=== PATIENT | male | born 2000 | race Hispanic/Latino ===

== ENCOUNTER 2019-06-29 14:22 | Emergency (ER) | payer OTHER, SELFPAY ==
[2019-06-29 14:43] VITALS: BP 148/95; PULSE 108; RESP 16; TEMP 37.8; O2SAT 100
--- NOTE | 2019-06-29 15:06 | ED.URI ---
HPI - URI/Sore Throat General Chief Complaint: Upper Respiratory Infection Stated Complaint: sore throat History of Present Illness HPI Narrative: This is a 18-year-old that comes in complaining of having a slight fever since he is having a sore throat with ear pain since he started taking his allergy medicine today he is really feeling horrible with head pressure and headache Related Data Home Medications Medication Instructions Recorded Confirmed cetirizine [Zyrtec] 10 mg PO DAILY 06/29/19 06/29/19 Allergies Allergy/AdvReac Type Severity Reaction Status Date / Time No Known Allergies Allergy Verified 06/29/19 14:34 Review of Systems Review of Systems: Narrative: CONSTITUTIONAL: Denies fever, chills, or sweats. EYES: Denies visual changes, redness, or discharge. ENT: Reports rhinorrhea, congestion, sore throat, or otalgia. CARDIOVASCULAR:Denies chest pain, palpitations, or edema. RESPIRATORY: Denies cough or dyspnea. GASTROINTESTINAL: Denies abdominal pain, nausea, vomiting, or diarrhea. GENITOURINARY: Denies dysuria or hematuria. SKIN:[Denies rash or itching. MUSCULOSKELETAL:Denies back pain, joint pain, or myalgia. NEUROLOGIC: Denies headache, numbness, or weakness. PSYCHIATRIC:Denies anxiety or depression PMFSH Social History Social History Gender identity (if verbalized by the patient): Male Comments At time as signature, I have reviewed and agree with nursing past medical, social, surgical and family history. Please see nursing chart for further information. There is no relevant family history pertinent to the presenting complaint. Exam Narrative: Exam Narrative: GENERAL:Well-appearing, well-nourished, and in no acute distress. HEAD:Normocephalic, atraumatic. EYES: PERRLA and EOMI. ENT: Nares clear, moderate rhinorrhea or epistaxis. Mucous membranes moist. Pharyngeal erythema TM bulging with slight erythema NECK: Supple. CHEST: Clear to auscultation. No respiratory distress. HEART: Regular rate and rhythm. No murmur heard. Normal peripheral pulses. ABDOMEN: Soft, nontender, nondistended, normal active bowel sounds. EXTREMITIES: Normal range of motion. No edema. SKIN: Warm, dry, no rash. NEURO: No focal deficits. Alert and oriented x3. Course Vital Signs Vital signs: Vital Signs Temperature 100.0 F H 06/29/19 14:43 Pulse Rate 108 H 06/29/19 14:43 Respiratory Rate 16 06/29/19 14:43 Blood Pressure 148/95 H 06/29/19 14:43 Pulse Oximetry 100 06/29/19 14:43 Temperature 100.0 F H 06/29/19 14:43 Pulse Rate 108 H 06/29/19 14:43 Respiratory Rate 16 06/29/19 14:43 Blood Pressure 148/95 H 06/29/19 14:43 Pulse Oximetry 100 06/29/19 14:43 MDM - URI/Sore Throat Differential Diagnosis Differential diagnosis: Likely upper respiratory infection, otitis media, sinusitis, viral infection, bronchitis and pharyngitis Lab Data Labs: Strep Screen Presumptive Negative *(Reference Range: Negative)* Discharge Plan Discharge Clinical Impression: Acute recurrent tonsillitis Fever Qualifiers: Fever type: unspecified Qualified Code(s): R50.9 - Fever, unspecified Patient Disposition: Home, Self-Care Condition: Stable Instructions: Antibiotic Form, Fever in Adults (ED), Tonsillitis (ED) Prescriptions: New amoxicillin 500 mg tablet 500 mg PO Q12H 10 Days Qty: 20 RF: 0 No Action cetirizine [Zyrtec] 10 mg Tablet 10 mg PO DAILY RF: 0 Follow-up/Referrals: UNKNOWN,DOCTOR [Primary Care Provider] - Time of Disposition: 15:32 Discharge Date/Time: 06/29/19 15:40
== END 2019-06-29 15:40 | disposition home or self-care (01) ==
PROVIDERS: Emergency Provider Nurse Practitioner Family
DX: J03.91 Acute recurrent tonsillitis, unspecified (principal); R50.9 Fever, unspecified
CPT/HCPCS: 87081; 87880; 99213; G0463

== ENCOUNTER 2019-08-22 13:27 | Emergency (ER) | payer OTHER, SELFPAY ==
[2019-08-22 13:39] VITALS: BP 143/88; PULSE 114; RESP 16; TEMP 37.9; O2SAT 98
--- NOTE | 2019-08-22 13:46 | ED.EAR ---
HPI - Ear Problem General Chief complaint: Ear Stated complaint: left ear pain Time Seen by Provider: 08/22/19 13:46 Source: patient Mode of arrival: ambulatory Limitations: no limitations History of Present Illness HPI Narrative: Quang Ingram is a 19 yo male with a PMH of ear infection who is here for L ear pain that radiates down face, who has had it a few days (2-3 days)- no obvious swelling or discoloration of face; pain with opening mouth Related Data Home Medications Medication Instructions Recorded Confirmed cetirizine [Zyrtec] 10 mg PO DAILY 08/22/19 08/22/19 Allergies Allergy/AdvReac Type Severity Reaction Status Date / Time No Known Allergies Allergy Verified 08/22/19 13:44 Review of Systems Review of Systems: Narrative: CONSTITUTIONAL: Denies fever, chills, sweats. EYES: Denies visual changes, redness, discharge. ENT: Denies rhinorrhea, congestion, sore throat, otalgia. CARDIOVASCULAR: Denies chest pain, palpitations, edema. RESPIRATORY: Denies dyspnea, wheezing, cough GASTROINTESTINAL: Denies abdominal pain, nausea, vomiting, diarrhea. GENITOURINARY: Denies dysuria, hematuria, abnormal discharge SKIN: Denies rash or itching. NEUROLOGIC: Denies numbness, or focal weakness. PSYCHIATRIC: Denies anxiety or depression. [facility] Family History Family History Other Diabetes mellitus Social History Social History (Updated 08/22/19 @ 13:58 by Rosa Das CNP) Smoking status: Never smoker Alcohol intake: current Occupation/Education: student Gender identity (if verbalized by the patient): Male Comments I have reviewed the social medical and family history with patient; none of these have relevance to the visit patient is being seen today BP elevation noted- may be due to pain- no hx of HTN Exam Narrative: Exam Narrative: GENERAL: This is a well-nourished, well-developed patient, in mild distress. HEAD: normocephalic, atraumatic. EYES: Sclera clear/white. Vision is grossly intact. EARS: External ears normal, auditory canals clear and without drainage, TMs normal without perforation. Hearing grossly intact. Pain is on the left radiating through the TMJ has difficulty opening mouth and complains of TMJ pain, has moderate dentition NOSE: External nose normal without nasal discharge, nares without redness, no rhinorrhea. THROAT: Mucous membranes moist, posterior pharynx NECK: Neck supple, non-tender CARDIOVASCULAR: Regular rate and rhythm without murmurs, gallops, or rubs. RESPIRATORY: Clear to auscultation. Breath sounds equal bilaterally. No wheezes, rales, or rhonchi. GASTROINTESTINAL: Abdomen soft, non-tender, SKIN: warm, intact with no suspicious lesions or rash, good texture and turgor. NEURO: awake, alert, and oriented to person, place and time. There were no obvious focal neurologic abnormalities. Steady gait EXTREMITIES: Normal range of motion. BACK: Nontender without deformity Course Course Emergency Course: Started on penicillin, ibuprofen for pain, needs to be seen by dentist Vital Signs Vital signs: Vital Signs Temperature 100.2 F H 08/22/19 13:39 Pulse Rate 114 H 08/22/19 13:39 Respiratory Rate 16 08/22/19 13:39 Blood Pressure 143/88 H 08/22/19 13:39 Pulse Oximetry 98 08/22/19 13:39 Temperature 100.2 F H 08/22/19 13:39 Pulse Rate 114 H 08/22/19 13:39 Respiratory Rate 16 08/22/19 13:39 Blood Pressure 143/88 H 08/22/19 13:39 Pulse Oximetry 98 08/22/19 13:39 Medical Decision Making Differential Diagnosis Differential Diagnosis: Dental pain vs otitis media vs viral illness Vital Signs Vital Signs: Vital Signs Temperature 100.2 F H 08/22/19 13:39 Pulse Rate 114 H 08/22/19 13:39 Respiratory Rate 16 08/22/19 13:39 Blood Pressure 143/88 H 08/22/19 13:39 Pulse Oximetry 98 08/22/19 13:39 Temperature 100.2 F H 08/22/19 13:39 Pulse Rate 114 H 08/22/19 13:39 Resp
== END 2019-08-22 14:07 | disposition home or self-care (01) ==
PROVIDERS: Emergency Provider Nurse Practitioner; PCP Pediatrics
DX: H92.02 Otalgia, left ear (principal); R25.2 Cramp and spasm
CPT/HCPCS: 99213; G0463

== ENCOUNTER 2020-08-15 19:12 | Emergency (ER) | payer OTHER, SELFPAY ==
[2020-08-15 19:21] VITALS: BP 150/98; PULSE 118; RESP 18; TEMP 37.3; O2SAT 100
--- NOTE | 2020-08-15 19:32 | ED.EAR ---
HPI - Ear Problem General Chief complaint: Ear Stated complaint: ear pain Time Seen by Provider: 08/15/20 19:20 Source: patient and RN notes reviewed Mode of arrival: ambulatory Limitations: no limitations History of Present Illness HPI Narrative: Patient presents today with a 3-day history of left ear popping, and complaints of clogging and pain that started today. Denies drainage. Denies sore throat, cough, congestion, rhinorrhea, headache, fever. He has been taking Zyrtec and Flonase with mild relief. He was on amoxicillin sometime within the last couple of months for otitis media. History of frequent otitis media and has been told he needs to see an ENT. MD Complaint: ear pain and decreased hearing Related Data Allergies Allergy/AdvReac Type Severity Reaction Status Date / Time No Known Allergies Allergy Verified 08/15/20 19:16 Review of Systems Review of Systems: Narrative: CONSTITUTIONAL: Denies body aches, fever, chills, or sweats. EYES: Denies visual changes, redness, or discharge. ENT: Denies rhinorrhea, congestion, sore throat. + Left ear clogging and pain with popping CARDIOVASCULAR: Denies chest pain, palpitations, or edema. RESPIRATORY: Denies cough or dyspnea. GASTROINTESTINAL: Denies abdominal pain, nausea, vomiting, or diarrhea. GENITOURINARY: Denies dysuria or hematuria. SKIN: Denies rash, itching, or wounds. MUSCULOSKELETAL: Denies back pain, joint pain, or myalgia. NEUROLOGIC: Denies headache, numbness, tingling, or weakness. PSYCH: Denies depression or anxiety. [facility] Past Medical History Medical History (Updated 08/16/20 @ 08:38 by Lisy Cardenas, [employer], ) History of frequent ear infections Family History Family History Other Diabetes mellitus Social History Social History Smoking status: Never smoker Alcohol intake: current Gender identity (if verbalized by the patient): Male Comments At time of signature, I have reviewed and agree with nursing past medical, surgical, social and family history unless otherwise noted. Please see nursing chart for further information. There is no relevant family history pertinent to the presenting complaint Exam Narrative: Exam Narrative: GENERAL: Well-appearing, over-nourished, and in no acute distress. HEAD: Normocephalic, atraumatic. EYES: EOMI. No redness or drainage. Conjunctivae normal. ENT: Mucous membranes pink and moist. Nares clear. No rhinorrhea. Right TM normal. Left TM erythematous and bulging with purulent material. Throat normal. Uvula midline. NECK: Normal AROM. CHEST: No respiratory distress. EXTREMITIES: Normal range of motion. No edema. SKIN: Warm, dry, no rash. Capillary refill normal. Normal skin turgor. NEURO: No focal deficits. Alert and oriented x3. Gait steady. PSYCH: Normal affect. No signs of depression or anxiety. Course Vital Signs Vital signs: Vital Signs Temperature 99.2 F 08/15/20 19:21 Pulse Rate 118 H 08/15/20 19:21 Respiratory Rate 18 08/15/20 19:21 Blood Pressure 150/98 H 08/15/20 19:21 Pulse Oximetry 100 08/15/20 19:21 Temperature 99.2 F 08/15/20 19:21 Pulse Rate 118 H 08/15/20 19:21 Respiratory Rate 18 08/15/20 19:21 Blood Pressure 150/98 H 08/15/20 19:21 Pulse Oximetry 100 08/15/20 19:21 Reviewed. Pt has been instructed to follow up with his PCP regarding his elevated blood pressure today. Medical Decision Making Differential Diagnosis Differential Diagnosis: Otitis media, otitis externa, ruptured TM, serous otitis, eustachian tube dysfunction, cerumen impaction Vital Signs Vital Signs: Vital Signs Temperature 99.2 F 08/15/20 19:21 Pulse Rate 118 H 08/15/20 19:21 Respiratory Rate 18 08/15/20 19:21 Blood Pressure 150/98 H 08/15/20 19:21 Pulse Oximetry 100 08/15/20 19:21 Temperature 99.2 F 08/15/20 19:21 Pu
== END 2020-08-15 19:38 | disposition home or self-care (01) ==
PROVIDERS: Emergency Provider Nurse Practitioner
DX: H66.92 Otitis media, unspecified, left ear (principal)
CPT/HCPCS: 99213; G0463

== ENCOUNTER 2020-09-22 18:25 | Emergency (ER) | payer OTHER, SELFPAY ==
[2020-09-22 18:28] VITALS: BP 135/99; PULSE 125; RESP 16; TEMP 37.2; O2SAT 98
--- NOTE | 2020-09-22 18:38 | ED.EAR ---
HPI - Ear Problem General Chief complaint: Ear Stated complaint: right ear pain Time Seen by Provider: 09/22/20 18:38 Source: patient and RN notes reviewed Mode of arrival: ambulatory Limitations: no limitations History of Present Illness HPI Narrative: 20-year-old male presents to the emergency with right ear pain. States that he stopped taking his allergy medication several days ago and has been using Q-tips and swimming. Denies fevers, nausea, vomiting or diarrhea. Denies chest pain Related Data Allergies Allergy/AdvReac Type Severity Reaction Status Date / Time No Known Allergies Allergy Verified 09/22/20 18:35 Review of Systems Review of Systems: All systems reviewed & are unremarkable except as noted in HPI and below Constitutional: Constitutional: Reports no additional constitutional complaints, Denies chills and Denies fever(s) Eyes: Eyes: Reports no additional eye complaints ENT: Reports as per HPI and Reports nasal congestion Cardiovascular: Cardiovascular: Reports no additional cardiovascular complaints and Denies chest pain Respiratory: Respiratory: Reports no additional respiratory complaints, Denies cough and Denies dyspnea Gastrointestinal: Gastrointestinal: Reports no additional gastrointestinal complaints, Denies abdominal pain, Denies nausea and Denies vomiting Musculoskeletal: Musculoskeletal: Reports no additional musculoskeletal complaints Integumentary/Breasts: Skin/Breast: Reports system reviewed and no additional complaints, except as docu Neurologic: Reports system reviewed and no additional complaints, except as documented, Denies headache(s), Denies numbness and Denies weakness Psychiatric: Psychiatric: Reports no additional psychiatric complaints Allergic/Immunologic: Allergic/Immunologic: Reports no additional allergic/immunologic complaints, Denies lip swelling, Denies throat swelling, Denies tongue swelling and Denies wheezing PMFSH Past Medical History Medical History (Updated 09/22/20 @ 18:44 by Padmini Pleitez) History of frequent ear infections Family History Family History Other Diabetes mellitus Social History Social History Smoking status: Never smoker Alcohol intake: current Gender identity (if verbalized by the patient): Male Comments At the time of my signature, I reviewed and agree with the nursing past medical, surgical, social, and family history. There is no relevant family history pertinent to the patient complaint. Exam Const: General: healthy appearing, no acute distress and alert Nutritional Appearance: well nourished and obese morbidly obese Orientation/consciousness: patient oriented x3 Limitations: no limitations HENMT: Head: normal to inspection Ears: hearing grossly normal bilaterally, external ears normal, TM's normal bilaterally and other (Right ear canal red, inflamed tender to palpation. No mastoid tenderness) General nose exam: Normal external nose present and Normal nares present Face and sinus: normal facial exam and sinuses nontender Mouth: Yes Normal oral and palatal mucosa present Throat: posterior oropharynx normal Eyes: Conjunctivae: conjunctivae normal Pupils: Equal, round and reactive pupils present Neck: Neck: normal visual inspection, no lymphadenopathy and no meningeal signs Chest: Chest palpation & inspection: normal inspection of the chest Resp: Effort & Inspection: normal respiratory effort and no use of accessory muscles Auscultation: clear to auscultation bilaterally, no crackles, no rales, no rhonchi and no wheezes Cardio: Rate: regular rate Rhythm: regular rhythm Skin: General skin exam: normal color Rashes: no rashes Wounds: no wounds Neuro: General: patient oriented x3, moves all extremities, no meningeal signs and no focal motor deficits Speech: normal speech Gait exam (Neuro): Normal gait present Extrem:
[2020-09-22 18:50] VITALS: PULSE 125
--- NOTE | 2020-09-22 18:55 | PC.NURSE ---
1849- rechecked heart rate, still 125, [employer] notified.
== END 2020-09-22 18:50 | disposition home or self-care (01) ==
PROVIDERS: Emergency Provider Nurse Practitioner
DX: H60.501 Unspecified acute noninfective otitis externa, right ear (principal)
CPT/HCPCS: 99213; G0463